=== PATIENT | female | born 2005 | race Hispanic/Latino ===

== ENCOUNTER 2025-08-05 06:25 | Inpatient (IN) | payer BC ==
[2025-08-05 07:05] VITALS: BMI 31.8
[2025-08-05] MEDS: Oxytocin 30 units/NS 500 ML 500 ML ONE (08:05)
[2025-08-05] MEDS ORDERED: Ondansetron PF 4 MG/2 ML Vial IVP PRN ×3 (08:49→23:16)
[2025-08-05] MEDS ORDERED: Carboprost 250 MCG/ML AMP IM PRN (08:49)
[2025-08-05] MEDS ORDERED: Methylergonovine 0.2 MG/ML VIAL IM PRN (08:49)
[2025-08-05] MEDS ORDERED: Diphenoxylate HCl/Atropine Tablet PO PRN (08:49)
[2025-08-05] MEDS ORDERED: Acetaminophen 500 MG TAB PO PRN (08:49)
[2025-08-05] MEDS ORDERED: Tranexamic Acid 1,000 MG/10 ML VIAL IVP PRN (08:49)
[2025-08-05] MEDS ORDERED: Lidocaine 1% (PF) 30 ML VIAL SC PRN (08:49)
[2025-08-05] MEDS ORDERED: HYDROcodone/Acetaminophen 5/325 mg Tablet PO PRN (08:49)
[2025-08-05] MEDS ORDERED: hydrALAZINE 20 MG/ML VIAL SLOW IVP PRN ×2 (08:49→23:16)
[2025-08-05] MEDS ORDERED: Oxytocin 30 units/NS 500 ML 500 ML IV SCH ×2 (09:00)
[2025-08-05 09:10] LABS: Hematocrit 35.3 % (34.9-44.5); Hemoglobin 12.2 g/dL (12.0-15.5); Mean Corpuscular Hemoglobin 32.4 pg (27.0-33.0); Mean Corpuscular Volume 93.6 fL (81.6-98.3); Platelet Count 249 10x3/uL (150-450); Red Blood Cell (RBC) Count 3.77 10x6/uL (3.90-5.03); White Blood Cell (WBC) Count 11.05 10x3/uL (3.5-10.5)
[2025-08-05 09:38] LABS: Syphilis Antibody Index 0.07 S/CO (<1.00 Non-Reactive)
[2025-08-05 09:40] LABS: Hep B Surf Ag - L&D Non-Reactive S/CO (NonReactive)
[2025-08-05] MEDS: fentaNYL/Ropivacaine Epidural 100 ML ONE (17:19)
[2025-08-05] MEDS ORDERED: Acetaminophen 325 MG TAB PO PRN (17:33)
[2025-08-05] MEDS ORDERED: diphenhydrAMINE 50 MG/ML VIAL IVP PRN (17:33)
[2025-08-05] MEDS ORDERED: Communication Order-Pharmacy FS SCH (17:45)
[2025-08-05] MEDS ORDERED: fentaNYL 2 mcg/Ropivacaine 0.2% Epidural 100 ML CADD EPIDURAL SCH (17:45)
[2025-08-05] MEDS: Ibuprofen 800 MG TAB PO PRN (20:10)
[2025-08-05] MEDS ORDERED: Bisacodyl 10 MG SUPP PR PRN (23:16)
[2025-08-05] MEDS ORDERED: Preparation H Ointment 28 GM TUBE PR PRN (23:16)
[2025-08-05] MEDS ORDERED: diphenhydrAMINE 25 MG CAP PO PRN (23:16)
[2025-08-05] MEDS ORDERED: Milk Of Magnesia 30 ML UDCUP PO PRN (23:16)
[2025-08-05] MEDS ORDERED: Boostrix 0.5 ML (Tdap) VIAL (>/=7 yrs of age) IM ONE (23:16)
[2025-08-05] MEDS ORDERED: Lanolin Ointment 7 GM TUBE TOP PRN (23:16)
[2025-08-05] MEDS ORDERED: Benzocaine-Menthol 82.5 ML CAN TOP PRN (23:16)
[2025-08-06] MEDS: Ibuprofen 800 MG TAB PO SCH ×2 (05:47→21:42)
[2025-08-06] MEDS ORDERED: Bupivacaine 0.25% HCL 30 ML VIAL ONE (06:00)
[2025-08-06] MEDS ORDERED: Bupivacaine HCl 0.5%/Epinephrine 1:200,000/PF 30 ml Vial ONE (06:00)
[2025-08-06] MEDS: Ferrous Sulfate 325 MG TAB PO SCH (08:26)
[2025-08-06] MEDS: HYDROcodone/Acetaminophen 5/325 mg Tablet PO PRN (21:42)
[2025-08-07 16:17] VITALS: BP 111/67; TEMP 98.1
== END 2025-08-07 15:30 | disposition home or self-care (01) | DRG 806 ==
LOC: CSHLD/OP 06:25 → CSHLD 08:47 → CSHPP 21:45
PROVIDERS: ADMIT Family Medicine; ATTEND Family Medicine
PROC: 10E0XZZ Delivery of Products of Conception, External Approach (ICD-10-PCS; principal; 2025-08-05)
PROC: 0UQGXZZ Repair Vagina, External Approach (ICD-10-PCS; 2025-08-05)
DX: O42.02 Full-term premature rupture of membranes, onset of labor within 24 hours of rupture (principal); O71.4 Obstetric high vaginal laceration alone; Z37.0 Single live birth; Z3A.39 39 weeks gestation of pregnancy
CPT/HCPCS: 51702; 85027; 86780; 86850; 86900; 86901; 87340; 99285; J0595; J0665; J2590; J7120